=== PATIENT | male | born 1965 | race Caucasian/White ===

== ENCOUNTER 2023-07-01 10:03 | Emergency (ER) | payer MEDICAID ==
[~2023-07-01] VITALS: Ht 177.8 cm; Wt 98.0 kg
[2023-07-01] MEDS ORDERED: IV NORMAL SALINE 1000 ML BAG IV ONE (10:15)
[2023-07-01] MEDS ORDERED: MORPHINE SULFATE 4 MG/1 ML DISP.SYRIN IV ONE (10:15)
[2023-07-01] MEDS ORDERED: ONDANSETRON 4 MG/2 ML VIAL IV ONE (10:15)
[2023-07-01] MEDS ORDERED: MORPHINE SULFATE 4 MG/1 ML DISP.SYRIN ONE (10:32)
[2023-07-01] MEDS ORDERED: ONDANSETRON 4 MG/2 ML VIAL ONE (10:32)
[2023-07-01 10:46] LABS: BASOPHILS % (AUTO) 0.3 % (0.0-2.0); EOSINOPHILS # (AUTO) 0.1 K/uL (0.0-0.7); EOSINOPHILS % (AUTO) 0.7 % (0.0-7.0); HEMATOCRIT 42.8 % (36.7-47.1); HEMOGLOBIN 13.8 g/dL (12.5-16.3); LYMPHOCYTES # (AUTO) 1.9 K/uL (0.8-4.8); LYMPHOCYTES % (AUTO) 13.1 % (20.5-51.5); MEAN CORPUSCULAR HEMOGLOBIN 27.2 uug (23.8-33.4); MEAN CORPUSCULAR HGB CONC 32 g/dL (32.5-36.3); MEAN CORPUSCULAR VOLUME 84.4 fL (73.0-96.2); MONOCYTES # (AUTO) 1.3 K/uL (0.1-1.30); NEUTROPHILS # (AUTO) 11.1 K/uL (1.8-8.9); NEUTROPHILS % (AUTO) 76.9 % (38.5-71.5); PLATELET COUNT (AUTO) 179 K/uL (152-348); RED BLOOD CELL COUNT(AUTO) 5.08 MIL/uL (4.06-5.63); RED CELL DISTRIBUTION WIDTH 14.8 % (12.1-16.2); WHITE BLOOD COUNT (AUTO) 14.4 K/uL (3.6-10.2)
[2023-07-01 10:47] LABS: *BILIRUBIN,URIN NEGATIVE (NEGATIVE); *BLOOD, URINE 3+ (NEGATIVE); *CLARITY,URINE CLEAR (CLEAR); *COLOR,URINE YELLOW (YELLOW); *KETONES,URINE NEGATIVE (NEGATIVE); *PROTEIN,URINE 2+ (NEGATIVE); LEUKOCYTE ESTERASE ,URINE 1+ (NEGATIVE); NITRITE, URINE POSITIVE (NEGATIVE); PH,URINE 6.5 (5.0-8.0)
[2023-07-01 10:49] LABS: DIFFERENTIAL COMMENT 1
[2023-07-01 10:52] LABS: UGLUCOSE 3+ (NEGATIVE)
[2023-07-01 10:54] LABS: CALCIUM 9.5 mg/dL (8.5-10.1); CREATININE 0.7 mg/dL (0.6-1.3); POTASSIUM 3.9 mmol/L (3.5-5.1)
[2023-07-01 11:00] LABS: ALBUMIN 3.4 g/dL (3.4-5.0); BILIRUBIN,DIRECT 0.2 mg/dL (0.0-0.2); BILIRUBIN,TOTAL 1.2 mg/dL (0.2-1.0)
[2023-07-01] MEDS ORDERED: CEFTRIAXONE 1 G in IV DEXTROSE 5% 50 ML IV ONE (11:15)
[2023-07-01 11:36] LABS: RBC,URINE 20-50 /HPF (0-3); WBC,URINE 80-100 /HPF (0-3)
[2023-07-01 11:37] LABS: BACTERIA,URINE MANY /HPF (NONE SEEN)
[2023-07-01] MEDS ORDERED: CEFTRIAXONE /D5W 50ML IVPB **ER PYXIS IV ONE (11:42)
[2023-07-01] MEDS ORDERED: LEVO500T90 PO (11:50)
[2023-07-01] MEDS ORDERED: IBUP-1955 PO (11:50)
[2023-07-01] MEDS ORDERED: HYDR-3980 PO (11:50)
[2023-07-01] MEDS ORDERED: HYDROCODONE/APAP 5-325MG TABLET ONE (12:58)
[2023-07-01] MEDS ORDERED: HYDROCODONE/APAP 5-325MG TABLET PO ONE (13:00)
[2023-07-01 13:40] VITALS: BP 132/78; TEMP 98.2; O2SAT 97
== END 2023-07-01 14:38 | disposition home or self-care (01) ==
LOC: ER 10:03
DX: N45.1 Epididymitis (principal); N39.0 Urinary tract infection, site not specified; I86.1 Scrotal varices; N43.3 Hydrocele, unspecified; N20.0 Calculus of kidney
CPT/HCPCS: 99285; 74176; 96365; 96375; 96361; 80076; 80048; 81001; 83690; 85025; 36415; 76870; J0696; J2405; J2270; J7040; A4663